=== PATIENT | female | born 1960 | race Caucasian/White ===

== ENCOUNTER → 2016-09-19 | Outpatient (CLI) | payer OTHER | LOC: SL 20:30 | PROVIDERS: ATTEND Family Medicine | DX: J45.50 Severe persistent asthma, uncomplicated (principal); I27.0 Primary pulmonary hypertension ==

== ENCOUNTER → 2016-09-21 | Outpatient (CLI) | payer OTHER | LOC: GMAM 17:04 | PROVIDERS: ATTEND Family Medicine | DX: R06.02 Shortness of breath (principal); J45.50 Severe persistent asthma, uncomplicated ==

== ENCOUNTER 2016-09-26 15:21 | Inpatient (IN) | payer OTHER ==
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
[2016-09-26] MEDS ORDERED: LEVALBUTEROL NEBS 1.25 MG/3 ML VIAL NEB PRN (15:45)
[2016-09-26] MEDS ORDERED: SODIUM CHLORIDE 0.9% (FLUSH) 10 ML SYG IV PRN (15:45)
[2016-09-26] MEDS ORDERED: ACETAMINOPHEN 325 MG TAB PO PRN (15:45)
[2016-09-26] MEDS ORDERED: LEVALBUTEROL NEBS 1.25 MG/3 ML VIAL NEB SCH (16:00)
[2016-09-26] MEDS ORDERED: IV SET AND CAP CHANGE INJ INJ SCH (16:00)
[2016-09-26] MEDS ORDERED: SODIUM CHL 0.9% 50ML MIN-BAG+ 50 ML IVPB ONE (16:22)
[2016-09-26] MEDS ORDERED: cefTRIAXone SODIUM 1 GM VIAL ONE (16:23)
[2016-09-26] MEDS: methylPREDNISolone SODIUM SUC 125 MG/2 ML VIAL IV SCH ×2 (16:28→22:27)
[2016-09-26] MEDS: AZITHROMYCIN 250 MG TAB PO SCH (16:30)
[2016-09-26] MEDS: cefTRIAXone SODIUM 1 GM in SODIUM CHL 0.9% 50ML MIN-BAG+ 50 ML IVPB SCH (16:42)
--- NOTE | 2016-09-26 16:52 | RAD ---
EXAM DESCRIPTION: Chest,2 Views CLINICAL HISTORY: Exacerbation Asthma COMPARISON: July 21, 2016 FINDINGS: Cardiac silhouette is within normal limits. Aorta is tortuous. There is no focal parenchymal or pleural disease. There is no acute osseous process visualized. IMPRESSION: No evidence of acute cardiopulmonary disease. Electronically signed by: Claude Lin MD 09/26/2016 2:51 PM PST
[2016-09-26] MEDS ORDERED: MAGNESIUM SULFATE PREMIX 2GM 2 GM in PREMIX BAG 1 BAG IVPB ONE (17:18)
[2016-09-26] MEDS ORDERED: MAGNESIUM SULFATE PREMIX 2GM 50 ML IVPB ONE (19:29)
[2016-09-26] MEDS ORDERED: PRAMIPEXOLE 0.25 MG TAB PO ONE (20:33)
[2016-09-26] MEDS: KCL 40MEQ/NS 1,000 ML IVS PRN (20:39)
[2016-09-26] MEDS ORDERED: SODIUM CHLORIDE 0.9% (FLUSH) 10 ML SYG IV SCH (21:00)
[2016-09-26] MEDS ORDERED: NON-FORMULARY MEDICATION 1 EA MIS (Pramipexole Dihydrochloride [Pramipexole Dihydrochlori] PO SCH (21:00)
[2016-09-26] MEDS: SPIRONOLACTONE 25 MG TAB PO SCH (21:00)
--- NOTE | 2016-09-26 21:24 | PCM.CORE ---
Physician DVT/VTE - Nurse DVT Assessment & Total Each Risk Factor Represents 2 Points: Malignancy (present/past) Each Risk Factor Represents 1 Point: Age 41-60 Each Risk Factor is 1 Point: Varicose Veins/Edema Legs, Obesity (BMI >25), Serious Lung disease (pnemonia <1month, COPD, emphysema,etc) DVT Assessment Score: 6 - 5 or more Very High Risk Treatments: Early Ambulation *, Sequential Compression Device Pharmacological: Enoxaparin 40mg SQ Daily
[2016-09-26] MEDS: ENOXAPARIN SODIUM 40 MG/0.4 ML SYG SUBCU SCH (22:29)
[2016-09-27] MEDS: LEVALBUTEROL NEBS 1.25 MG/3 ML VIAL NEB SCH ×4 (00:06→16:16)
[2016-09-27] MEDS: IPRATROPIUM BROMIDE NEBS 0.5 MG/2.5 ML VIAL NEB SCH ×4 (01:21→16:16)
[2016-09-27] MEDS: methylPREDNISolone SODIUM SUC 125 MG/2 ML VIAL IV SCH ×4 (03:46→21:42)
[2016-09-27] MEDS: [UNRECOGNIZED DRUG - OTHER] PO SCH ×3 (06:46→16:40)
[2016-09-27] MEDS: PANCRELIPASE PO SCH ×3 (06:46→16:40)
--- NOTE | 2016-09-27 07:41 | RAD ---
EXAM DESCRIPTION: XR CHEST 2 VIEWS CLINICAL HISTORY: Pneumonia COMPARISON: 09/26/2016 TECHNIQUE: Two-views of the chest. FINDINGS: Heart size is normal. Lungs are clear. No acute osseous injury. IMPRESSION: No acute chest process Electronically signed by: Sim Melgar MD 09/27/2016 07:39
[2016-09-27] MEDS: BREO ELLIPTA INH SCH (08:05)
[2016-09-27] MEDS ORDERED: TIOTROPIUM INHALER INH SCH (08:30)
[2016-09-27] MEDS: MONTELUKAST SODIUM 10 MG TAB PO SCH (09:50)
[2016-09-27] MEDS: SERTRALINE HCL 50 MG TAB PO SCH (09:50)
[2016-09-27] MEDS: SPIRONOLACTONE 25 MG TAB PO SCH ×2 (09:50→20:41)
[2016-09-27] MEDS: lamoTRIgine 100 MG TAB PO SCH (09:50)
[2016-09-27] MEDS: BIFIDOBACTERIUM INFANTIS 4 MG CAP PO SCH (09:50)
[2016-09-27] MEDS: KCL 40MEQ/NS 1,000 ML IVS PRN (12:28)
[2016-09-27] MEDS ORDERED: KCL 40MEQ/NS 1,000 ML IVS PRN ×2 (12:29→12:49)
--- NOTE | 2016-09-27 13:25 | PN ---
SUPERVISING PHYSICIAN: Micheal Espino MD DATE: 09/27/16 SUBJECTIVE: The patient is sitting up in her chair in her hospital room. She is in mild respiratory distress. She is slightly tachypneic and she can say one to two words at a time without getting somewhat short of breath. She complains of shortness of breath with exertion although it is better than it was yesterday. She also states she does get some slight chest pains when she uses the Atrovent. Other than that, she denies coughing or wheezing. She denies abdominal pain, dizziness or headache. OBJECTIVE: VITAL SIGNS: She is afebrile. Heart rate 104. Blood pressure 134/ 77. Respiratory rate 24. O2 saturation 93% on 2 liters nasal cannula. RESPIRATORY: Diminished breath sounds throughout with occasional scattered rhonchi. There is no expiratory wheezing at this time. She is slightly tachypneic. CARDIAC: Regular rate and rhythm. She does occasionally become tachycardic. ABDOMEN: Soft, nontender, nondistended. Bowel sounds are positive. EXTREMITIES: No cyanosis or clubbing. She does have a trace of pedal edema. Her pedal pulses are palpable bilaterally, +2. NEUROLOGIC: Awake , alert and oriented times three. LABORATORY: White count 7.4, hemoglobin 12.9, hematocrit 37.4. She does have a slight shift with neutrophils 90.9%. Sodium has gone up from 123 to 126. Potassium 3.9, chloride 92, glucose 210, serum osmolality 259.7, calcium 9.1. Preliminary blood cultures are negative. Chest x-ray shows no cardiopulmonary abnormalities. All other labs and films have been reviewed via the EMR. ASSESSMENT: 1. Acute exacerbation of asthma having failed to respond to outpatient treatment with the patient having a history of recent exacerbation in July and pneumonia with sputum growing Moraxella catarrhalis. 2. Hyponatremia. 3. Exacerbation of chronic obstructive pulmonary disease with a history of chronic bronchitis and asthma. 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 4. Electrolyte imbalance including hypochloremia that is improving. 5. History of supraventricular tachycardia having ablation therapy. 6. History of venous insufficiency with chronic lower extremity edema. 7. History of cardiovascular valvular dysfunction with audible murmurs and chronic lower extremity edema and the last echocardiogram in March of 2016 with an ejection fraction of 64%. 8. History of pulmonary hypertension. 9. Iron deficiency anemia. 10. Hypertension. 11. Significant history of obstructive pulmonary disease requiring CPAP at night. 12. Gastroesophageal reflux disease. PLAN: We will restrict the patient's fluids. I have discontinued her Atrovent and increased her Xopenex to every 4 hours and p.r.n. I have started slowly tapering off her Solu-Medrol. We will get an ambulatory study tomorrow to see what her exercise tolerance is. Repeat her labs in the morning. We will continue to monitor the patient closely and followup as needed. Dr. Espino is the collaborating physician and available for consultation. #[id number] [facility]
[2016-09-27] MEDS ORDERED: cefTRIAXone SODIUM 1 GM VIAL ONE (16:31)
[2016-09-27] MEDS ORDERED: SODIUM CHL 0.9% 50ML MIN-BAG+ 50 ML IVPB ONE (16:31)
[2016-09-27] MEDS: AZITHROMYCIN 250 MG TAB PO SCH (16:40)
[2016-09-27] MEDS: cefTRIAXone SODIUM 1 GM in SODIUM CHL 0.9% 50ML MIN-BAG+ 50 ML IVPB SCH (16:40)
[2016-09-27] MEDS ORDERED: LURASIDONE HCL 60 MG PO SCH (17:00)
[2016-09-27] MEDS ORDERED: PRAMIPEXOLE 0.25 MG TAB PO ONE (19:43)
[2016-09-27] MEDS: SPIRIVA RESPIMAT INH SCH (20:00)
[2016-09-27] MEDS: PRAMIPEXOLE 0.25 MG TAB PO SCH (20:42)
[2016-09-27] MEDS: ENOXAPARIN SODIUM 40 MG/0.4 ML SYG SUBCU SCH (21:14)
[2016-09-27] MEDS: guaiFENesin ER TAB 600 MG TAB PO SCH (21:14)
[2016-09-28] MEDS: LEVALBUTEROL NEBS 1.25 MG/3 ML VIAL NEB PRN ×3 (01:10→13:17)
[2016-09-28] MEDS: methylPREDNISolone SODIUM SUC 125 MG/2 ML VIAL IV SCH ×4 (04:19→22:05)
[2016-09-28] MEDS: PANCRELIPASE PO SCH ×4 (06:48→22:01)
[2016-09-28] MEDS: [UNRECOGNIZED DRUG - OTHER] PO SCH ×4 (06:48→22:01)
[2016-09-28] MEDS: SPIRIVA RESPIMAT INH SCH ×3 (08:17→19:50)
[2016-09-28] MEDS: BREO ELLIPTA INH SCH (08:17)
[2016-09-28] MEDS: SERTRALINE HCL 50 MG TAB PO SCH (08:37)
[2016-09-28] MEDS: BIFIDOBACTERIUM INFANTIS 4 MG CAP PO SCH (08:38)
[2016-09-28] MEDS: MONTELUKAST SODIUM 10 MG TAB PO SCH (08:38)
[2016-09-28] MEDS: SPIRONOLACTONE 25 MG TAB PO SCH ×2 (08:38→16:30)
[2016-09-28] MEDS: guaiFENesin ER TAB 600 MG TAB PO SCH ×2 (08:38→21:22)
[2016-09-28] MEDS: lamoTRIgine 100 MG TAB PO SCH (08:38)
[2016-09-28] MEDS ORDERED: LEVALBUTEROL NEBS 1.25 MG/3 ML VIAL NEB PRN (09:08)
[2016-09-28] MEDS ORDERED: cefTRIAXone SODIUM 1 GM VIAL ONE ×2 (11:02→22:14)
[2016-09-28] MEDS ORDERED: SODIUM CHL 0.9% 50ML MIN-BAG+ 50 ML IVPB ONE ×2 (11:02→22:13)
[2016-09-28] MEDS: cefTRIAXone SODIUM 1 GM in SODIUM CHL 0.9% 50ML MIN-BAG+ 50 ML IVPB SCH ×2 (11:05→22:38)
--- NOTE | 2016-09-28 14:52 | PN ---
SUPERVISING PHYSICIAN: Micheal Espino MD DATE: 09/28/16 SUBJECTIVE: The patient is sitting up in bed. She is working on her computer. She is slightly tachypneic. She complains of shortness of breath with any exertion, but she does state she feels somewhat better than yesterday. She did have one bout of chest pain earlier in the morning, but it was during her Xopenex treatment. There are no further complaints of chest pain, no complaints of abdominal pain, nausea or vomiting. She also complains of some occasional wheezing. OBJECTIVE: VITAL SIGNS: Temperature 98.4. Heart rate 96. Blood pressure 152/ 82. Respiratory rate 24, occasionally goes down to 20 and then also goes up to 26 to 28. O2 saturation 94% on room air. GENERAL: This is a 56-year-old, obese female who is in no acute distress. LUNGS: Bilateral expiratory wheezing in the apices, scattered diffusely rhonchi throughout all lung field. CARDIAC: Regular rate and rhythm. ABDOMEN: Soft, rounded, nontender, nondistended. Bowel sounds are positive. EXTREMITIES: No cyanosis, clubbing or edema. NEUROLOGIC: Awake, alert and oriented times three. LABORATORY: WBC 20.3, up from 7.4 yesterday. It is to be noted that her steroid dosing was decreased yesterday. Neutrophils 93. Sodium 133, up from 126 yesterday. Chloride 100, carbon dioxide 27, BUN 16, creatinine 0.76, glucose 213, serum osmolality 273.9. Cardiac enzymes this morning were negative. Preliminary blood cultures are negative after 24 hours. Preliminary sputum culture shows gram negative rods. All other labs and films have been reviewed via the EMR. ASSESSMENT: 1. Acute exacerbation of asthma having failed to respond to outpatient treatment with the patient having a history of recent exacerbation in July. Her sputum in July grew Moraxella catarrhalis. Preliminary cultures for this hospital visit show a gram negative sputum, still awaiting sensitivities. 2. Hyponatremia, improved with fluid restrictions. 3. Exacerbation of chronic obstructive pulmonary disease with a history of chronic bronchitis and asthma. 4. Electrolyte imbalance including hypochloremia that is improving. 5. History of supraventricular tachycardia having ablation therapy in the past. 6. History of venous insufficiency with chronic lower extremity edema. 7. History of cardiovascular valvular dysfunction. Her last echocardiogram in March of 2016 had an ejection fraction of 64%. 8. History of pulmonary hypertension. 9. Iron deficiency anemia. 10. Hypertension. 11. Gastroesophageal reflux disease. PLAN: The patient is slowly improving although she still has expiratory wheezings and dyspnea on exertion. Her white count did jump up significantly overnight, so I will recheck her CBC in the morning. I will continue present steroid dosing and we may be able to reduce her dosage tomorrow. She had asked to discontinue the p.r.n. Xopenex treatments yesterday and I have re-started the scheduled treatments q.4h. She also has Xopenex as needed. We will continue to restrict the patient's fluid although she is poorly compliant. We will wait for sensitivities from her sputum. At this point, she has coverage for the gram negative as she is on Rocephin. We will also continue her azithromycin. Continue to encourage good pulmonary toilet. She will hopefully be ready for discharge in the next day or two. Dr. Espino is the collaborating physician and available for consultation. #[id number] [facility]
[2016-09-28] MEDS: AZITHROMYCIN 250 MG TAB PO SCH (15:45)
[2016-09-28] MEDS: LEVALBUTEROL NEBS 1.25 MG/3 ML VIAL NEB SCH ×3 (16:36→23:55)
[2016-09-28] MEDS ORDERED: LURASIDONE HCL 60 MG PO SCH (21:00)
[2016-09-28] MEDS: PRAMIPEXOLE 0.25 MG TAB PO SCH (21:22)
[2016-09-28] MEDS ORDERED: [UNRECOGNIZED DRUG - OTHER] PO ONE (21:47)
[2016-09-28] MEDS ORDERED: PANCRELIPASE PO ONE (21:47)
[2016-09-28] MEDS: ENOXAPARIN SODIUM 40 MG/0.4 ML SYG SUBCU SCH (22:01)
[2016-09-29] MEDS: methylPREDNISolone SODIUM SUC 125 MG/2 ML VIAL IV SCH (03:45)
[2016-09-29] MEDS: LEVALBUTEROL NEBS 1.25 MG/3 ML VIAL NEB SCH ×3 (04:00→13:19)
[2016-09-29] MEDS ORDERED: SODIUM CHL 0.9% 50ML MIN-BAG+ 50 ML IVPB ONE (08:40)
[2016-09-29] MEDS ORDERED: cefTRIAXone SODIUM 1 GM VIAL ONE (08:40)
[2016-09-29] MEDS: BIFIDOBACTERIUM INFANTIS 4 MG CAP PO SCH (08:52)
[2016-09-29] MEDS: SPIRONOLACTONE 25 MG TAB PO SCH (08:52)
[2016-09-29] MEDS: guaiFENesin ER TAB 600 MG TAB PO SCH (08:53)
[2016-09-29] MEDS: lamoTRIgine 100 MG TAB PO SCH (08:53)
[2016-09-29] MEDS: MONTELUKAST SODIUM 10 MG TAB PO SCH (08:55)
[2016-09-29] MEDS: SERTRALINE HCL 50 MG TAB PO SCH (08:55)
[2016-09-29] MEDS: SPIRIVA RESPIMAT INH SCH (08:55)
[2016-09-29] MEDS: BREO ELLIPTA INH SCH (08:55)
[2016-09-29 10:47] VITALS: TEMP 98
[2016-09-29] MEDS: cefTRIAXone SODIUM 1 GM in SODIUM CHL 0.9% 50ML MIN-BAG+ 50 ML IVPB SCH (12:08)
[2016-09-29] MEDS ORDERED: PANCRELIPASE PO PRN (12:12)
[2016-09-29] MEDS ORDERED: [UNRECOGNIZED DRUG - OTHER] PO PRN (12:12)
[2016-09-29] MEDS ORDERED: FLUCONAZOLE 150 MG TAB PO ONE (13:13)
[2016-09-29 15:16] VITALS: BP 141/74; O2SAT 97
--- NOTE | 2016-09-30 12:07 | DS ---
SUPERVISING PHYSICIAN: Sim Bah MD DISCHARGE DIAGNOSES: 1. Acute exacerbation of asthma having failed to respond to outpatient treatment plan and having a history of recent exacerbation as early as July 2016. She has a history of Moraxella catarrhalis. Cultures on sputum this admission showed Klebsiella pneumonia which was sensitive to all except ampicillin with the patient having just completed a 5 to 7 day course of Cefdinir prior to admission and now completion of full course of azithromycin IV. 2. Hyponatremia, persistent and felt to be secondary to medication regimen as well as excessive intake, showing improvement after starting on fluid restriction. 3. Exacerbation of chronic obstructive pulmonary disease with history of chronic bronchitis and asthma with current exacerbation as noted in #1 showing improvement after aggressive pulmonary hygiene and high-dose corticosteroids. 4. Electrolyte imbalance that included hypochloremia and hyponatremia showing improvement prior to discharge. 5. History of supraventricular tachycardia having ablation therapy in the past. 7. History of venous insufficiency with chronic lower extremity edema. 8. History of cardiovascular valvular dysfunction with last echocardiogram March 2016 with an ejection fraction of 64%. 9. History of pulmonary hypertension. 10. Iron-deficiency anemia. 11. Hypertension. 12. Gastroesophageal reflux disease. HISTORY OF PRESENT ILLNESS: Jese Smith is a 56 year-old female patient of Dr. Bah'dontrell that was seen in the clinic the previous week prior to admission for a mild exacerbation of her asthma. She was initially given steroids and started on a course of Cefdinir. She presented back to the clinic today on date of admission, 09/26/16, noting that her symptoms had progressively worsened and that she was having a significant cough that had now become productive with dyspnea with any mild exertion as well as wheezing. She was directly admitted to the hospital having failed to respond to outpatient treatment therapy for exacerbation of her asthma. She was admitted in stable condition. LABORATORY: CBC on admission initially showed a white count of 6.9. She did show a maximum increase in her white count to 20.3, however, she was on significant dosages of Solu-Medrol prior to discharge. This had started to show a decrease and was at 13.8. Hemoglobin and hematocrit were stable at 12.4 and 36.3. Initially, there was no left showed on a differential, however, after treatment and at time of discharge she did show a left shift which was shown to be stable and Improving initially with initial slide review showing 5% bands and at tie of discharge no bands were reported. Coagulation studies showed a normal PT, PTT. Her chemistries initially on admission did show a low sodium of 123 with a potassium of 3.6. Her sodium did increase to the low end of normal to 132, potassium remained stable and at time of discharge it was 4.1 Her BUN was 14, creatinine 0.71 and was stable through admission. Serum osmolality initially on admission was low at 247. After fluid restrictions at time of discharge it was normalized but was still in the low end of normal at 272. Her liver functions all showed to be within normal limits. Troponin was normal at 0.03 with a BNP of 39. Urine on admission did show 250 glucose, otherwise within normal limits. MICROBIOLOGY: Sputum culture showed a final culture of Klebsiella pneumonia sensitive to all antibiotics tested except for ampicillin. Please refer to that file report for full details. She had influenza A and B antigen test that were both negative for A and B. She had blood cultures that remained negative after 3 days. RADIOLOGY: Initial chest x-ray on admission per radiology interpretation showed no acute cardiopulmonary disease. Repeat chest x-ray on 09/27, two days prior to discharge and after starting treatment, showed again no acute chest processes. No additional radiographic studies were pursued. HOSPITAL COURSE: Ms. Sawant was admitted as above in her history of present illness for a noted exacerbation of her asthma, having failed to respond to outpatient treatment plan. Upon admission, she was started on antibiotics that included azithromycin and Rocephin. She was also started on high dose of corticosteroids at 125 mg every 6 hours for 2 days. This was slowly tapered off until discharge at which time she was sent home with a continued tapered dose of prednisone. She did show improvement in her respiratory effort and clinically improved. Her vital signs initially on admission did show an 02 saturation of 98%, however, she was significantly short of breath with obvious dyspnea with 24 to 30 respirations with significantly decreased breath sounds. Blood pressure remained stable, at time of discharge it was 132/73. She was 141/74, she remained afebrile with a T-max temperature of 98.6. Heart rate remained fairly well controlled with a heart rate max of 115. She had no chest pain, she had good improvement in her respiratory effort and was continued to maintain good 02 saturation with increasing lung function after starting on aggressive pulmonary hygiene. She was felt enough to discharge home to continue with outpatient treatment plan. PLAN: The patient is discharged on 09/29/16 to have close clinical followup with Dr. Bah on 10/04/16 at 10:15. She was to resume all her previous medications as scheduled and take new prescriptions as directed. No new antibiotics were started as it was felt she has no significant signs of pneumonia and had been on adequate antibiotic coverage prior and through admission. She was encouraged to increase her activity and utilize her IS at home. She was told she could return to work after October 04 when she was seen and followed by Dr. Bah. She was encouraged to watch her diet and watch her fluid intake. She was given one Diflucan tablet 150 mg prior to discharge. At discharge she was given new prescriptions, one that included Diflucan 150 mg tablet, one table to take in 3 days if she had no improvement in her symptoms from 09/29/16, with no refills. She was on a prednisone tapering dose, 10 mg tablet. She was to take 40 mg for 5 days, 30 mg for 5 days, 20 mg for 5 days and then 10 mg for 5 days. She was discharged in stable condition on 09/29/16. #[id number] [facility]
== END 2016-09-29 13:30 | disposition home or self-care (01) | DRG 202 ==
LOC: MS 15:21
PROVIDERS: ADMIT Nurse Practitioner Family; ATTEND Nurse Practitioner Family
DX: J45.901 Unspecified asthma with (acute) exacerbation (principal); E87.1 Hypo-osmolality and hyponatremia; J44.1 Chronic obstructive pulmonary disease with (acute) exacerbation; Z68.42 Body mass index [BMI] 45.0-49.9, adult; B96.1 Klebsiella pneumoniae [K. pneumoniae] as the cause of diseases classified elsewhere; I27.2 Other secondary pulmonary hypertension; D50.9 Iron deficiency anemia, unspecified; I10 Essential (primary) hypertension; K21.9 Gastro-esophageal reflux disease without esophagitis; E87.8 Other disorders of electrolyte and fluid balance, not elsewhere classified; E53.8 Deficiency of other specified B group vitamins; I08.3 Combined rheumatic disorders of mitral, aortic and tricuspid valves; G47.33 Obstructive sleep apnea (adult) (pediatric); K58.9 Irritable bowel syndrome, unspecified; G25.81 Restless legs syndrome; F31.9 Bipolar disorder, unspecified; D70.9 Neutropenia, unspecified; K86.89 Other specified diseases of pancreas; M47.9 Spondylosis, unspecified; E66.9 Obesity, unspecified; Z16.11 Resistance to penicillins; Z98.84 Bariatric surgery status

== ENCOUNTER → 2016-10-04 | Outpatient (CLI) | payer OTHER | LOC: GMAM 14:44 | PROVIDERS: ATTEND Family Medicine | DX: I47.1 Supraventricular tachycardia (principal) ==

== ENCOUNTER → 2016-11-09 | Outpatient (CLI) | payer OTHER ==
--- NOTE | 2016-11-10 09:01 | RAD ---
EXAM DESCRIPTION: Lumbar Spine 3 Views CLINICAL HISTORY: 56 yearsFemale, LUMBAR NEURITIS COMPARISON: None. IMPRESSION: Mild dextroscoliosis of lumbar spine. There is degenerative change at L5-S1 with significant intervertebral disc height loss and subchondral sclerosis. Disc vacuum phenomenon noted. Possible L5 pars defects. This can be confirmed on a CT. Electronically signed by: Low Bragg MD 11/10/2016 9:00 AM [employer]
== END | disposition home or self-care (01) ==
LOC: RAD 18:06
PROVIDERS: ATTEND Chiropractor
DX: M54.16 Radiculopathy, lumbar region (principal)

== ENCOUNTER → 2017-03-20 | Outpatient (CLI) | payer OTHER | LOC: GMAM 11:55 | PROVIDERS: ATTEND Family Medicine | DX: R60.0 Localized edema (principal); E87.6 Hypokalemia; E87.0 Hyperosmolality and hypernatremia ==

== ENCOUNTER → 2017-07-05 | Outpatient (CLI) | payer OTHER ==
--- NOTE | 2017-07-05 17:53 | US ---
PROCEDURE: Venous,Lower Extremity RT CLINICAL HISTORY and INDICATION: Right lower extremity pain COMPARISON: None. TECHNIQUE: Contreras scale imaging with duplex interrogation of the right lower extremity venous system was performed and multiple static images were obtained. FINDINGS: Utilizing compression and augmentation, there is no deep venous thrombus in the common femoral, superficial femoral or popliteal veins. The posterior tibial and deep peroneal veins are patent and compressible. . The greater saphenous vein at the saphenofemoral junction is patent and compressible. There is no visualization of any subcutaneous fluid collections. There is no visualization of any fluid collections in the right popliteal fossa. There is no evidence of reactive or pathological lymphadenopathy in the evaluated right lower extremity. IMPRESSION: No deep venous thrombosis of the right lower extremity. Location of Interpretation: [id number] Electronically signed by: Huey Wheeler MD 07/05/2017 5:52 PM CDT Workstation: [id number]
== END | disposition home or self-care (01) ==
LOC: US 16:35
PROVIDERS: ATTEND Nurse Practitioner Family
DX: L03.115 Cellulitis of right lower limb (principal); R60.9 Edema, unspecified

== ENCOUNTER 2017-07-07 13:08 | Inpatient (IN) | payer OTHER ==
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
[2017-07-07] MEDS ORDERED: VANCOMYCIN PER PHARMACY IVPB SCH (14:30)
[2017-07-07] MEDS ORDERED: IV SET AND CAP CHANGE INJ INJ SCH (14:30)
[2017-07-07] MEDS ORDERED: VANCOMYCIN HCL INJ 1,000 MG VIAL IVPB ONE (15:29)
[2017-07-07] MEDS ORDERED: SODIUM CHLORIDE 0.9% 250ML 250 ML ONE (15:29)
[2017-07-07] MEDS ORDERED: VANCOMYCIN HCL INJ 500 MG VIAL ONE (15:29)
[2017-07-07] MEDS: SODIUM CHLORIDE 0.9% (FLUSH) 10 ML SYG IV PRN ×2 (15:46→17:48)
[2017-07-07] MEDS: VANCOMYCIN HCL INJ 1,000 MG, VANCOMYCIN HCL INJ 250 MG in SODIUM CHLORIDE 0.9% 250ML 25... IVPB SCH (15:47)
[2017-07-07] MEDS ORDERED: POTASSIUM CHLORIDE 20 MEQ TAB PO ONE (16:10)
[2017-07-07] MEDS ORDERED: traMADol HCL 50 MG TAB PO ONE (16:18)
[2017-07-07] MEDS ORDERED: KCL 20MEQ/D5NS 1,000 ML IVS ONE (16:20)
[2017-07-07] MEDS ORDERED: TRIAMCINOLONE 0.1% OINT 15 GM TUBE TOP PRN (16:47)
[2017-07-07] MEDS ORDERED: [UNRECOGNIZED DRUG - OTHER] PO PRN (16:47)
[2017-07-07] MEDS ORDERED: PANCRELIPASE PO PRN (16:47)
[2017-07-07] MEDS ORDERED: LEVALBUTEROL NEBS 1.25 MG/3 ML VIAL NEB PRN ×2 (16:51→16:52)
[2017-07-07] MEDS ORDERED: ENOXAPARIN SODIUM 40 MG/0.4 ML SYG SUBCU SCH (17:00)
[2017-07-07] MEDS: PANTOPRAZOLE SODIUM IV 40 MG VIAL IV SCH (17:48)
[2017-07-07] MEDS ORDERED: TORSEMIDE TAB 20 MG ONE (19:45)
[2017-07-07] MEDS ORDERED: levoFLOXacin 500MG IV 100 ML IVPB ONE (19:46)
[2017-07-07] MEDS ORDERED: MAGNESIUM OXIDE 400 MG TAB ONE (19:48)
[2017-07-07] MEDS ORDERED: PRAMIPEXOLE 0.25 MG TAB ONE (19:56)
[2017-07-07] MEDS: TORSEMIDE TAB 20 MG PO SCH ×2 (20:04→20:06)
[2017-07-07] MEDS: levoFLOXacin 500MG IV 500 MG in PREMIX BAG 1 BAG IVPB SCH (20:04)
[2017-07-07] MEDS: MONTELUKAST 10 MG TAB PO SCH (20:04)
[2017-07-07] MEDS: NON-FORMULARY MEDICATION 1 EA MIS (Dexlansoprazole [Dexilant] 60 MG) PO SCH (20:04)
[2017-07-07] MEDS: SODIUM CHLORIDE 0.9% (FLUSH) 10 ML SYG IV SCH (20:47)
[2017-07-07] MEDS ORDERED: NON-FORMULARY MEDICATION 1 EA MIS (Magnesium [Magnesium] 400 MG) PO SCH (21:00)
[2017-07-07] MEDS ORDERED: NON-FORMULARY MEDICATION 1 EA MIS (Pramipexole Dihydrochloride [Pramipexole Dihydrochlori] PO SCH (21:00)
[2017-07-08] MEDS ORDERED: VANCOMYCIN HCL INJ 500 MG VIAL ONE ×2 (02:35→15:39)
[2017-07-08] MEDS ORDERED: VANCOMYCIN HCL INJ 1,000 MG VIAL IVPB ONE ×2 (02:35→15:40)
[2017-07-08] MEDS ORDERED: SODIUM CHLORIDE 0.9% 250ML 250 ML ONE ×2 (02:35→15:40)
[2017-07-08] MEDS: VANCOMYCIN HCL INJ 1,000 MG, VANCOMYCIN HCL INJ 250 MG in SODIUM CHLORIDE 0.9% 250ML 25... IVPB SCH ×2 (03:15→15:57)
[2017-07-08] MEDS ORDERED: [UNRECOGNIZED DRUG - OTHER] PO SCH (07:00)
[2017-07-08] MEDS ORDERED: PANCRELIPASE PO SCH (07:00)
[2017-07-08] MEDS ORDERED: NON-FORMULARY MEDICATION 1 EA MIS (Tiotropium Bromide Monohydrate [Spiriva Respimat] 2 INH IN SCH (08:00)
[2017-07-08] MEDS ORDERED: MECLIZINE HCL 12.5 MG TAB PO PRN (08:00)
[2017-07-08] MEDS ORDERED: NON-FORMULARY MEDICATION 1 EA MIS (Fluticasone Furoate-Vilanterol [Breo Ellipta 100-25 Mcg IN SCH (08:00)
[2017-07-08] MEDS: TORSEMIDE TAB 20 MG PO SCH ×3 (08:23→17:25)
[2017-07-08] MEDS ORDERED: POTASSIUM CHLORIDE 10 MEQ TAB PO ONE ×2 (08:47→08:58)
[2017-07-08] MEDS: lamoTRIgine 100 MG TAB PO SCH (08:57)
[2017-07-08] MEDS: SERTRALINE HCL 50 MG TAB PO SCH (08:57)
[2017-07-08] MEDS: POTASSIUM CHLORIDE 10 MEQ TAB PO SCH ×2 (08:58→17:25)
[2017-07-08] MEDS: ENOXAPARIN SODIUM 40 MG/0.4 ML SYG SUBCU SCH (08:59)
[2017-07-08] MEDS: SODIUM CHLORIDE 0.9% (FLUSH) 10 ML SYG IV SCH ×2 (09:00→20:17)
[2017-07-08] MEDS: traMADol HCL 50 MG TAB PO PRN (09:04)
[2017-07-08] MEDS: [UNRECOGNIZED DRUG - OTHER] PO SCH ×3 (10:39→17:06)
[2017-07-08] MEDS: PANCRELIPASE PO SCH ×3 (10:39→17:06)
--- NOTE | 2017-07-08 11:07 | RAD ---
Procedure: XR ANKLE 3 OR MORE VIEWS Exam Date: 07/08/2017 10:22 AM ASSOCIATE DIRECTOR OF NURSING Ordering Provider: Juan Villela NP Clinical Indication: cellulitis, severe pain over medial mallelous Comparison: None Findings: There is diffuse soft tissue swelling about the ankle and the lower leg. No acute fracture or focal osseous destruction is present. Degenerative spurring is seen at the tibiotalar joint space. Millimetric subchondral cystic changes seen in the medial aspect of the talar dome subchondral bone plate. IMPRESSION: Diffuse soft tissue swelling about the distal leg and ankle. No acute osseous abnormality. Probable chronic osteochondral lesion at the medial talar dome. Electronically signed by: Darin Crews MD 07/08/2017 11:06 AM ASSOCIATE DIRECTOR OF NURSING
[2017-07-08] MEDS ORDERED: KETOROLAC TROMETHAMINE INJ 30 MG/ML VIAL IV ONE (13:07)
--- NOTE | 2017-07-08 13:49 | PCM.CORE ---
Physician DVT/VTE - Nurse DVT Assessment & Total Each Risk Factor Represents 1 Point: Age 41-60 Each Risk Factor is 1 Point: Varicose Veins/Edema Legs, Hx of Inflammatory Bowel Disease, Obesity (BMI >25), Serious Lung disease (pnemonia <1month, COPD, emphysema,etc) DVT Assessment Score: 5 - 5 or more Very High Risk Treatments: Early Ambulation *, Sequential Compression Device - left leg Pharmacological: Enoxaparin 40mg SQ Daily
--- NOTE | 2017-07-08 14:50 | PN ---
DATE: 07/08/17 SUPERVISING PHYSICIAN: Micheal Espino M.D. SUBJECTIVE: The patient has been in bed with the leg elevated. She notes that the swelling has decreased from admission. She still has a good deal of tenderness overlying the ankle, especially the medial aspect. She remains afebrile. OBJECTIVE: VITAL SIGNS: Temperature 98.3, pulse 72, blood pressure 106/72, respirations 18, satting 93% on room air. I's and O's show a positive balance of 1250 with 3300 in, 2050 out. Weight 118.7 kg. CHEST: Lungs are clear to auscultation. HEART: Regular rate and rhythm. ABDOMEN: Soft, non-tender. Positive bowel sounds. EXTREMITIES: Right lower extremity shows some edema with erythema more localized today to the medial aspect of the ankle and foot with some ecchymotic areas distal to the ankle. She has some point tenderness overlying the medial malleolus and pain with flexion of the ankle. Pulses are 2 + bilaterally. The area of erythema has decreased and receded below the initial margins that were marked on admission. NEUROLOGIC: She is alert and oriented times three. LABORATORY: CBC shows a white count of 5.5, hemoglobin 11.0, hematocrit 32.0, platelet count is within normal limits. Magnesium 1.9, potassium 3.3. All other electrolytes were within normal limits. BUN 8, creatinine 0.73. RADIOLOGY: Three view plain film of the right ankle per radiology interpretation notes diffuse soft tissue swelling about the distal leg and ankle. No acute osseous abnormalities were noted. There is probable chronic osteochondral lesion at the medial talar dome. There is no mention of acute fractures or focal osseous destructions present. There was a degenerative spurring seen at the tibial talar joint space with a millimetric subcondylar cystic changes within the medial aspect of the talar dome, subcondylar bone plate per radiology interpretation. ASSESSMENT: 1. 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 2. Electrolyte imbalance with mild hypokalemia showing improvement with IV replacement. 3. Mild dehydration, improved with IV fluids. 4. History of asthma. 5. History of supraventricular tachycardia having a previous ablation therapy. 6. History of venous insufficiency with chronic lower edema. 7. History of pulmonary hypertension. 8. Iron deficiency anemia. 9. Hypertension. 10. History of chronic obstructive pulmonary disease with obstructive sleep apnea requiring CPAP at night. 11. Gastroesophageal reflux disease. PLAN: The patient will continue with bedrest keeping the leg elevated and parenteral antibiotics to include vancomycin and Levaquin as she is showing good improvement. Based off x-ray findings today and in consideration for a more inflammatory response versus infectious process due to the questionable chronic osteochondral lesion at the medial talar dome, will try some antiinflammatories to include Toradol today. The patient does not recall any traumatic events or injuries to the ankle within the last week. Given the findings on x-ray, I will discuss those with Dr. Morales in anticipation of close clinical followup in the outpatient setting. Will anticipate hopefully discharging tomorrow with continued antibiotic therapy. Until then, will continue to monitor and treat appropriately. #[id number] [facility]
[2017-07-08] MEDS: PANTOPRAZOLE SODIUM IV 40 MG VIAL IV SCH (17:30)
[2017-07-08] MEDS: KETOROLAC TROMETHAMINE INJ 30 MG/ML VIAL IV SCH (18:10)
[2017-07-08] MEDS ORDERED: levoFLOXacin 500MG IV 100 ML IVPB ONE (20:02)
[2017-07-08] MEDS: levoFLOXacin 500MG IV 500 MG in PREMIX BAG 1 BAG IVPB SCH (20:18)
[2017-07-08] MEDS: MONTELUKAST 10 MG TAB PO SCH (20:43)
[2017-07-08] MEDS: MAGNESIUM OXIDE 400 MG TAB PO SCH (20:43)
[2017-07-08] MEDS: NON-FORMULARY MEDICATION 1 EA MIS (Dexlansoprazole [Dexilant] 60 MG) PO SCH (20:43)
[2017-07-08] MEDS: PRAMIPEXOLE 0.25 MG TAB PO SCH (20:43)
[2017-07-08] MEDS: LURASIDONE HCL 60 MG PO SCH (20:59)
[2017-07-08] MEDS: diphenhydrAMINE HCL 25 MG CAP PO PRN (23:12)
[2017-07-09] MEDS: KETOROLAC TROMETHAMINE INJ 30 MG/ML VIAL IV SCH ×2 (00:12→06:36)
[2017-07-09] MEDS: SODIUM CHLORIDE 0.9% (FLUSH) 10 ML SYG IV PRN ×3 (00:13→06:36)
[2017-07-09] MEDS ORDERED: SODIUM CHLORIDE 0.9% 250ML 250 ML ONE ×3 (02:36→20:52)
[2017-07-09] MEDS ORDERED: VANCOMYCIN HCL INJ 500 MG VIAL ONE (02:36)
[2017-07-09] MEDS ORDERED: VANCOMYCIN HCL INJ 1,000 MG VIAL IVPB ONE ×2 (02:37→19:18)
[2017-07-09] MEDS: VANCOMYCIN HCL INJ 1,000 MG, VANCOMYCIN HCL INJ 250 MG in SODIUM CHLORIDE 0.9% 250ML 25... IVPB SCH ×2 (03:40→15:26)
[2017-07-09] MEDS: traMADol HCL 50 MG TAB PO PRN ×2 (03:40→18:18)
[2017-07-09] MEDS: POTASSIUM CHLORIDE 10 MEQ TAB PO SCH ×2 (08:26→17:10)
[2017-07-09] MEDS: SERTRALINE HCL 50 MG TAB PO SCH (08:26)
[2017-07-09] MEDS: TORSEMIDE TAB 20 MG PO SCH ×2 (08:26→17:10)
[2017-07-09] MEDS: lamoTRIgine 100 MG TAB PO SCH (08:26)
[2017-07-09] MEDS: PANCRELIPASE PO SCH ×3 (08:27→17:10)
[2017-07-09] MEDS: SODIUM CHLORIDE 0.9% (FLUSH) 10 ML SYG IV SCH ×2 (08:27→21:30)
[2017-07-09] MEDS: ENOXAPARIN SODIUM 40 MG/0.4 ML SYG SUBCU SCH (08:27)
[2017-07-09] MEDS: [UNRECOGNIZED DRUG - OTHER] PO SCH ×3 (08:27→17:10)
[2017-07-09] MEDS: NON-FORMULARY MEDICATION 1 EA MIS (Fluticasone Furoate-Vilanterol [Breo Ellipta 100-25 Mcg IN SCH (09:15)
[2017-07-09] MEDS: NON-FORMULARY MEDICATION 1 EA MIS (Tiotropium Bromide Monohydrate [Spiriva Respimat] 2 INH IN SCH (09:20)
[2017-07-09] MEDS ORDERED: PANTOPRAZOLE SODIUM TAB 40 MG PO ONE (10:06)
[2017-07-09] MEDS: MELOXICAM 7.5 MG TAB PO SCH (10:11)
[2017-07-09] MEDS: PANTOPRAZOLE SODIUM TAB 40 MG PO SCH (11:42)
--- NOTE | 2017-07-09 17:55 | PN ---
DATE: 07/09/17 SUPERVISING PHYSICIAN: Sim Bah M.D. SUBJECTIVE: The patient has been afebrile. Leg shows some improvement. Still having quite a bit of pain on the ankle especially with any ambulatory effort. OBJECTIVE: VITAL SIGNS: Temperature 98.5, pulse 73, blood pressure 120/69, respirations 18, satting 98% on room air. I's and O's show a positive balance of 112 with 3762 in, 3650 out. Weight is 118.7 kg. CHEST: Lungs are clear to auscultation. HEART: Regular rate and rhythm. ABDOMEN: Soft, non-tender. Positive bowel sounds. EXTREMITIES: Right lower extremity shows decrease in edema. There is still some mild erythema overlying the medial aspect of the right ankle with some ecchymotic areas distal to that. Pulses are strong bilaterally. NEUROLOGIC: She is alert and oriented times three. LABORATORY: Chemistries today show potassium 3.4 which is improved from admission of 3.1, BUN 16, creatinine 0.93, calcium 8.9. Vancomycin trough was 19.3. MICROBIOLOGY: Blood cultures remain negative after 48 hours. ASSESSMENT: 1. 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 2. Electrolyte imbalance with persistent mild hypokalemia showing improvement with IV fluids. 3. Mild dehydration, improved with IV fluids. 4. History of asthma. 5. History of supraventricular tachycardia having a previous ablation therapy. 6. History of venous insufficiency with chronic lower edema. 7. History of pulmonary hypertension. 8. Iron deficiency anemia. 9. Hypertension. 10. History of chronic obstructive pulmonary disease with obstructive sleep apnea requiring CPAP at night. 11. Gastroesophageal reflux disease. PLAN: Will continue with current plan at this point with parenteral antibiotics to include vancomycin. I have stopped Levaquin. She will be transitioned to p.o. antiinflammatories with Roseanna today with anticipation of hopefully discharging tomorrow. Once discharged, she will have close clinical followup scheduled with Dr. Morales in the following week as well as further evaluation of the ankle with MRI prior to that followup appointment. She will need to discharge on an antiinflammatory and continued rest. Until discharge, will continue to monitor and treat appropriately. [facility][id number] [facility]
[2017-07-09] MEDS: MONTELUKAST 10 MG TAB PO SCH (21:30)
[2017-07-09] MEDS: MAGNESIUM OXIDE 400 MG TAB PO SCH (21:30)
[2017-07-09] MEDS: NON-FORMULARY MEDICATION 1 EA MIS (Dexlansoprazole [Dexilant] 60 MG) PO SCH (21:30)
[2017-07-09] MEDS: VANCOMYCIN HCL INJ 1,000 MG in SODIUM CHLORIDE 0.9% 250ML 250 ML IVPB SCH (21:30)
[2017-07-09] MEDS: PRAMIPEXOLE 0.25 MG TAB PO SCH (21:30)
[2017-07-09] MEDS: LURASIDONE HCL 60 MG PO SCH (21:30)
[2017-07-10] MEDS: traMADol HCL 50 MG TAB PO PRN ×2 (01:18→07:00)
[2017-07-10] MEDS: diphenhydrAMINE HCL 25 MG CAP PO PRN (01:19)
[2017-07-10] MEDS: PANTOPRAZOLE SODIUM TAB 40 MG PO SCH (06:26)
[2017-07-10] MEDS ORDERED: SODIUM CHLORIDE 0.9% 250ML 250 ML ONE ×2 (07:37→09:21)
[2017-07-10] MEDS ORDERED: VANCOMYCIN HCL INJ 1,000 MG VIAL IVPB ONE (07:38)
[2017-07-10] MEDS: PANCRELIPASE PO SCH (07:48)
[2017-07-10] MEDS: [UNRECOGNIZED DRUG - OTHER] PO SCH (07:48)
[2017-07-10] MEDS: POTASSIUM CHLORIDE 10 MEQ TAB PO SCH (07:48)
[2017-07-10] MEDS: TORSEMIDE TAB 20 MG PO SCH (08:40)
[2017-07-10] MEDS: SERTRALINE HCL 50 MG TAB PO SCH (08:44)
[2017-07-10] MEDS: lamoTRIgine 100 MG TAB PO SCH (08:45)
[2017-07-10] MEDS: SODIUM CHLORIDE 0.9% (FLUSH) 10 ML SYG IV SCH (08:45)
[2017-07-10] MEDS: MELOXICAM 7.5 MG TAB PO SCH ×2 (08:45→09:04)
[2017-07-10] MEDS: VANCOMYCIN HCL INJ 1,000 MG in SODIUM CHLORIDE 0.9% 250ML 250 ML IVPB SCH ×2 (08:46→09:28)
[2017-07-10] MEDS: ENOXAPARIN SODIUM 40 MG/0.4 ML SYG SUBCU SCH (08:46)
[2017-07-10] MEDS: NON-FORMULARY MEDICATION 1 EA MIS (Fluticasone Furoate-Vilanterol [Breo Ellipta 100-25 Mcg IN SCH (08:48)
[2017-07-10] MEDS: NON-FORMULARY MEDICATION 1 EA MIS (Tiotropium Bromide Monohydrate [Spiriva Respimat] 2 INH IN SCH (08:48)
[2017-07-10] MEDS: KETOROLAC TROMETHAMINE INJ 30 MG/ML VIAL IV ONE ×2 (09:05→09:48)
[2017-07-10] MEDS ORDERED: KETOROLAC TROMETHAMINE INJ 30 MG/ML VIAL IM ONE (09:42)
[2017-07-10] MEDS ORDERED: DOXYCYCLINE HYCLATE CAP 100 MG CAP PO SCH (10:00)
[2017-07-10 10:52] VITALS: BP 104/70; TEMP 97.9; O2SAT 97
[2017-07-10] MEDS ORDERED: SODIUM CHLORIDE 0.9% 250ML 250 ML IVS PRN ×2 (11:03→11:08)
--- NOTE | 2017-07-15 18:34 | DS ---
SUPERVISING PHYSICIAN: Sim Bah M.D. DISCHARGE DIAGNOSIS: 1. 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 2. Electrolyte imbalance with persistent mild hypokalemia improved with IV fluids. 3. Mild dehydration, improved with IV fluids. 4. Multiple co-morbidities to include asthma, supraventricular tachycardia with previous ablation, venous insufficiency with chronic lower edema, pulmonary hypertension, iron deficiency anemia, hypertension, obstructive sleep apnea requiring CPAP and gastroesophageal reflux disease. HISTORY OF PRESENT ILLNESS: Ms. Sawant is a 57 year-old female patient of Dr. Bah's that was seen in clinic on the Sunday prior to admission when she had some redness in her right lower leg. She was then diagnosed with cellulitis and placed on Clindamycin p.o. at that time. The night before admission she woke up early in the morning with pain in the right lower leg and the redness and swelling was much worse. She went to [facility] on the date of admission and saw NOAH Allen, and then had an ultrasound of her right lower extremity. Per radiology interpretation of the ultrasound there was no deep thrombosis of the right lower extremity. Marlene then called for direct admission. The patient was admitted directly from the clinic in stable condition. LABORATORY: White count on admission was 7,200, at discharge was 5,500. Differential was within normal limits. H&H was stable at 11 and 32. She had a sed rate initially on admission was 63, prior to discharge was 81. Chemistries showed a persistent hypokalemia, although it had resolved and normalized prior to discharge. At discharge, electrolytes were within normal limits with hypokalemia of 3.6 compared to admission of 3.1. BUN was stable at 16, creatinine 0.99. Liver functions all showed to be within normal limits. She had a C reactive protein on admission that was 17.7, prior to discharge it had gone down to 4.2. She was on vancomycin per Pharmacy protocol and had 1 vancomycin trough that was 19.3. MICROBIOLOGY: Blood cultures remained negative at 5 days. None of the cultures were submitted for analysis. RADIOLOGY: She had an ankle x-ray the day after admission and per radiology interpretation there was diffuse soft tissue swelling within the distal leg and ankle, and probable chronic osteochondral lesion at the medial talar dome. Other reports prior to admission as noted in History of Present Illness was a right lower extremity ultrasound which was negative for DVT per radiology interpretation. HOSPITAL COURSE: Ms. Sawant was admitted on 07/07/17 as noted in History of Present Illness. She was put on bedrest except for bathroom privileges. Her leg was elevated. She was started on vancomycin per Pharmacy protocol and Levaquin. It was noted that she had a recent ingrown toenail on the same foot that was mildly erythematous. She did show good improvement but continued to have a significant amount of pain over the medial aspect of the malleolus on the right leg. After x-rays were completed, it was felt that her clinical course was more related to inflammatory response to OCD versus a true infection. She was stopped on the Levaquin and continued with vancomycin until discharge, and then started on an antiinflammatory regimen while in the hospital on Toradol and responded well. Prior to discharge, her ankle had decreased in swelling. It was still showing some mild erythema over the malleolus, but was much improved as prior to admission. She was then transitioned to p.o. NSAIDs and felt clinically stable enough to be discharged to continue with outpatient treatment plan. PLAN: Ms. Sawant was discharged on 07/10/17 to have close clinical followup with Dr. Morales on 07/19/17 at 8:00 AM, earlier if condition continued to show lack of improvement. She was also told to see Dr. Bah if she needed to prior to that followup appointment. She was to resume her home medications as instructed. She was to take her new prescriptions as directed. She was told to have no weightbearing on the right ankle until she was seen by Dr. Morales and to keep her right leg elevated as much as possible. She was to return to the hospital should she have any worsening or continuing symptoms. She was not started on any steroids but was continued with antibiotic therapy and NSAIDs. MEDICATIONS AT DISCHARGE: 1. Zorvolex 35 mg 3 times a day, #21. 2. Antibiotic coverage to include Vibramycin 100 mg twice daily, #28. Diet at discharge was regular diet as tolerated. Activity is as instructed above. Condition at discharge was stable and improved. #[id number] [facility]
== END 2017-07-10 11:30 | disposition home or self-care (01) | DRG 603 ==
LOC: MS 13:08
PROVIDERS: ADMIT Nurse Practitioner Acute Care; ATTEND Nurse Practitioner Family
DX: L03.115 Cellulitis of right lower limb (principal); M93.271 Osteochondritis dissecans, right ankle and joints of right foot; J45.909 Unspecified asthma, uncomplicated; I27.20 Pulmonary hypertension, unspecified; D50.9 Iron deficiency anemia, unspecified; L60.0 Ingrowing nail; E53.8 Deficiency of other specified B group vitamins; I10 Essential (primary) hypertension; I08.3 Combined rheumatic disorders of mitral, aortic and tricuspid valves; G47.33 Obstructive sleep apnea (adult) (pediatric); K21.9 Gastro-esophageal reflux disease without esophagitis; K44.9 Diaphragmatic hernia without obstruction or gangrene; G25.81 Restless legs syndrome; F31.9 Bipolar disorder, unspecified; K86.89 Other specified diseases of pancreas; D70.9 Neutropenia, unspecified; E04.9 Nontoxic goiter, unspecified; E87.6 Hypokalemia; E86.0 Dehydration; M93.971 Osteochondropathy, unspecified, right ankle and foot; I87.2 Venous insufficiency (chronic) (peripheral); J44.9 Chronic obstructive pulmonary disease, unspecified; Z98.84 Bariatric surgery status

== ENCOUNTER → 2017-07-12 | Outpatient (CLI) | payer OTHER | END | disposition home or self-care (01) | LOC: GMAM 15:40 | PROVIDERS: ATTEND Family Medicine | DX: L03.115 Cellulitis of right lower limb (principal) ==

== ENCOUNTER → 2017-07-16 | Outpatient (CLI) | payer OTHER ==
--- NOTE | 2017-07-17 10:59 | MRI ---
Study: MRI of the Right Ankle. Indication: OCD OF RT ANKLE Technique: Multiplanar, multi sequence MRI of the right ankle was obtained without intravenous contrast. Comparison: Radiographs July 08, 2017. Findings: Extensive subcutaneous edema throughout the right lower leg and ankle without drainable collection. No acute fracture. A chronic appearing 14 mm AP by 8 mm transverse osteochondral lesion of the medial margin of the talar dome with overlying grade 3/4 chondrosis. There is minimal fluid signal intensity undermining portions of it which can indicate a degree of instability. Areas of grade 2 and 3 chondral thinning throughout the remainder of the tibiotalar compartment. Mild subcortical cystic change noted of the posterior medial margin of the lateral malleolus at its articulation with the talus. Scattered osteoarthritis changes throughout the midfoot noted and most pronounced at the articulation of the navicular bone with the medial and intermediate cuneiforms where there is multifocal grade 4 chondral loss and subchondral marrow change of the navicular bone. Prior high-grade partial thickness tearing and attenuation anterior talofibular ligament as well as prior sprains calcaneofibular ligament and deep deltoid ligament. Remaining medial and lateral ankle ligaments intact. The medial, anterior, peroneal, and Achilles tendons are intact. Moderate plantar calcaneal heel spurring with chronic appearing plantar fasciitis. No tear. Diminished T1 signal throughout the sinus tarsi with slightly elevated STIR signal which can be seen with sinus tarsi syndrome. Impression: Chronic appearing osteochondral lesion of the medial margin of the talar dome with several areas of likely instability. Scattered osteoarthritic changes of the midfoot, most pronounced at the articulation of the navicular bone with the medial and intermediate cuneiforms. Chronic plantar fasciitis. Remote partial thickness tear anterior talofibular ligament with remote sprain deep deltoid ligament. Electronically signed by: Howard Leal MD 07/17/2017 10:57 AM [facility]
== END | disposition home or self-care (01) ==
LOC: MRI 09:12
PROVIDERS: ATTEND Nurse Practitioner Family
DX: M72.2 Plantar fascial fibromatosis (principal); M19.071 Primary osteoarthritis, right ankle and foot

== ENCOUNTER → 2017-09-10 | Outpatient (CLI) | payer OTHER ==
--- NOTE | 2017-09-11 11:22 | MRI ---
Study: MRI of the Right Ankle. Indication: ANKLE PAIN Technique: Multiplanar, multi sequence MRI of the right ankle was obtained without intravenous contrast. Comparison: July 16, 2017 Findings: Extensive subcutaneous edema throughout the ankle, minimally improved compared to the prior. Patchy marrow edema noted within the superior margin posterior calcaneal tuberosity, central to distal calcaneus, central cuboid, and talar head/neck. These changes are likely stress-related and are new compared to the prior. No acute fracture identified. The osteochondral lesion of the medial margin of the talar dome with signs of partial instability redemonstrated and appears stable. No new osteochondral lesion identified. The osteoarthritic changes throughout the midfoot are stable as well and most pronounced at the articulation of the navicular bone with the medial and intermediate cuneiforms. Chronic plantar fasciitis redemonstrated and appear stable without acute tear. Remote partial tear anterior talofibular ligament and remote sprain deep deltoid ligament redemonstrated. No acute fluid filled tear of the medial or lateral ankle ligaments. Mild fluid distention of the posterior tibialis tendon sheath with subtle insertional posterior tibialis tendinosis. No tear. Remaining medial tendons, anterior tendons, and Achilles tendon intact. Subtle tendinosis of the peroneal tendons along the lateral margin of the calcaneus with mild longitudinal fissuring of the brevis tendon. No high-grade tear. Impression: New marrow edema of the hindfoot and midfoot as above, likely stress-related. No acute fracture. Extensive subcutaneous edema about the ankle. Chronic appearing osteochondral lesion of the talar dome redemonstrated with signs of instability. Stable osteoarthritic changes throughout the midfoot. Low-grade insertional posterior tibialis tendinosis. Subtle tendinosis of the peroneal tendons with mild longitudinal fissuring of the brevis tendon. Additional stable findings as above. Electronically signed by: Howard Leal MD 09/11/2017 11:21 AM [facility]
== END ==
LOC: MRI 13:18
PROVIDERS: ATTEND Orthopaedic Surgery
DX: M25.571 Pain in right ankle and joints of right foot (principal); M92.8 Other specified juvenile osteochondrosis; M76.821 Posterior tibial tendinitis, right leg

== ENCOUNTER → 2017-09-14 | Outpatient (CLI) | payer OTHER ==
--- NOTE | 2017-09-15 13:19 | RAD ---
Two views of the pelvis and two views of both hips. INDICATION: Hip pain. COMPARISON: None. FINDINGS: Pelvic ring inlet appears maintained. No widening pubic symphysis or sacroiliac joints. No displaced or diastatic pelvic fractures identified. There are moderate hypertrophic degenerative changes of both hip joints with joint space narrowing and osteophytosis, right greater than left. No acute fracture, dislocation or suspicious osseous lesions identified in the visualized proximal femora. Soft tissues have a normal radiographic appearance. IMPRESSION: 1. Moderate osteoarthritic degenerative changes of both hip joints, right greater than left. 2. No radiographic evidence for acute osseous abnormality of the pelvis or either hip. Electronically signed by: Bart Villalba MD 09/15/2017 1:18 PM [facility] Workstation: [id number]
== END | disposition home or self-care (01) ==
LOC: RAD 10:29
PROVIDERS: ATTEND Orthopaedic Surgery
DX: M16.0 Bilateral primary osteoarthritis of hip (principal)

== ENCOUNTER → 2017-09-17 | Outpatient (CLI) | payer OTHER | END | disposition home or self-care (01) | LOC: LAB.O 17:42 | PROVIDERS: ATTEND Physician Assistant | DX: M79.661 Pain in right lower leg (principal) ==

== ENCOUNTER → 2017-09-18 | Outpatient (CLI) | payer OTHER ==
--- NOTE | 2017-09-18 13:36 | US ---
EXAM DESCRIPTION: Venous,Lower Extremity RT: ULTRASOUND. CLINICAL HISTORY: PAIN IN LOWER LEG COMPARISON: None Available. TECHNIQUE: Two -dimensional and doppler sonographic evaluation of the deep venous system of the right lower extremity. FINDINGS: Doppler evaluation shows normal color flow and normal phasicity and augmentation of the right common femoral vein, femoral vein, popliteal vein, greater saphenous vein, peroneal, and posterior tibial vein. The right lower extremity deep veins showed normal occlusion with transducer pressure. Two-dimensional survey showed no echogenic thrombus within these veins. 2.0 x 1.5 x 0.6 cm oval-shaped mass in the distal anterior subcutaneous tissue of the right lower leg. More homogeneous than the surrounding fatty tissue but isoechoic. Nonvascular. No fluid collection. IMPRESSION: 1. Duplex ultrasound evaluation of the right lower extremity deep venous system showing no evidence of thrombosis or embolism. 2. Probable lipoma subcutaneous adipose tissue, anterior distal right lower leg. Electronically signed by: Hitesh Salcido MD 09/18/2017 1:35 PM STUDENT OUTREACH COORDINATOR
== END | disposition home or self-care (01) ==
LOC: US 12:21
PROVIDERS: ATTEND Physician Assistant
DX: M79.661 Pain in right lower leg (principal)

== ENCOUNTER → 2017-09-21 | Outpatient (CLI) | payer OTHER | END | disposition home or self-care (01) | LOC: LAB.O 15:10 | PROVIDERS: ATTEND Physician Assistant | DX: E87.6 Hypokalemia (principal) ==

== ENCOUNTER → 2017-10-02 | Outpatient (CLI) | payer OTHER | LOC: LAB.O 13:13 | PROVIDERS: ATTEND Internal Medicine Cardiovascular Disease | DX: R60.9 Edema, unspecified (principal); I10 Essential (primary) hypertension ==

== ENCOUNTER → 2017-10-05 | Outpatient (CLI) | payer OTHER | LOC: GMAM 13:18 | PROVIDERS: ATTEND Family Medicine | DX: E87.6 Hypokalemia (principal) ==

== ENCOUNTER → 2017-10-29 | Outpatient (CLI) | payer OTHER | LOC: LAB.O 15:36 | PROVIDERS: ATTEND Internal Medicine Hematology | DX: D50.8 Other iron deficiency anemias (principal) ==

== ENCOUNTER → 2017-12-06 | Outpatient (CLI) | payer OTHER | END | disposition home or self-care (01) | LOC: LAB.O 17:32 | DX: N18.3 Chronic kidney disease, stage 3 (moderate) (principal); I12.9 Hypertensive chronic kidney disease with stage 1 through stage 4 chronic kidney disease, or unspecified chronic kidney disease ==

== ENCOUNTER → 2018-03-13 | Outpatient (CLI) | payer OTHER ==
--- NOTE | 2018-03-13 13:26 | RAD ---
EXAM DESCRIPTION: Chest,2 Views CLINICAL HISTORY: 58 years Female, OTHER SECONDARY PULMONARY HYPERTENSION COMPARISON: September 27, 2016. TECHNIQUE: PA and lateral radiographs of the chest were obtained. FINDINGS: Trachea is midline.The cardiomediastinal silhouette is normal in size. The pulmonary vasculature is within normal limits.The lungs are clear with no acute consolidation.No evidence of pleural effusions. Multilevel degenerative changes of the thoracic spine noted. IMPRESSION: No acute cardiopulmonary process. Electronically signed by: Manjinder Grijalva MD 03/13/2018 1:25 PM CDT
--- NOTE | 2018-03-13 16:25 | MRI ---
EXAM DESCRIPTION: Ankle,Right CLINICAL HISTORY: M24.071 COMPARISON: September 2017 TECHNIQUE: MRI of the right ankle is performed according to our usual protocol with multiplanar multi sequence imaging. FINDINGS: Today's examination is directly correlated with the September 2017 study and again shows diffuse edema throughout the superficial and deep subcutaneous tissues. Large osteochondral defect in the medial talar dome again demonstrated measuring 18 mm in AP diameter by 12 mm transverse diameter. This is a full-thickness defect with no unstable or loose body observed. No new talar abnormality detected. Evaluation of posterior tendons shows split thickness tear of the peroneus longus as it turns underneath the calcaneus. Mild tendinopathy of the peroneus brevis. Posterior tibial tendon unremarkable along with other not mentioned posterior tendons. Achilles unremarkable. Anterior compartment tendons intact. Mild plantar fasciitis. Medial ligament complex of the ankle shows an indistinct appearance of the deep fibers of the deltoid consistent with remote prior injury/instability. Evaluation of lateral ligament complex shows mild thickening and increased signal intensity anterior and posterior talofibular ligaments and calcaneofibular ligament also consistent with chronic/prior ankle sprain. There is edema throughout the sinus Tarsi with an indistinct appearance of the cervical ligaments. 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 Complex abnormal right ankle is stable since previous examinations with large stable osteochondral defect and findings of chronic instability and likely related edema in the sinus Tarsi. Electronically signed by: Henry Ramon MD 03/13/2018 4:24 PM CDT
== END ==
LOC: MRI 12:00
PROVIDERS: ATTEND Orthopaedic Surgery
DX: M24.071 Loose body in right ankle (principal); M93.271 Osteochondritis dissecans, right ankle and joints of right foot; I27.20 Pulmonary hypertension, unspecified

== ENCOUNTER 2018-05-21 12:55 | Emergency (ER) | payer OTHER ==
--- NOTE | 2018-05-21 13:37 | ED.PDOC ---
History of Present Illness - General Chief Complaint: Laceration Time Seen by Provider: 05/21/18 13:35 Source: patient Exam Limitations: no limitations - History of Present Illness Initial Comments: ppatient comes in today for laceration to her lip. Patient states she tripped on her walking cast fell and hit her face causing a laceration. She has no dental injury no loss of consciousness with some dizziness. No altered LOC, vision, or emesis. Patient has multiple medical problems including digestive heart failure, pulmonary hypertension, multi-nodular goiter, and valvular disease. Last tetanus shot was 5 years ago. Timing/Duration: just prior to arrival Severity: moderate Location: face Improving Factors: nothing Worsening Factors: nothing Associated Symptoms: denies symptoms Allergies/Adverse Reactions: Allergies NO KNOWN ALLERGY Allergy (Verified 05/21/18 14:30) Home Medications: Ambulatory Orders Dexlansoprazole [Dexilant] 60 mg PO BEDTIME 04/07/16 Montelukast [Singulair] 10 mg PO BEDTIME 04/07/16 Ondansetron HCl [Zofran] 8 mg PO Q6H PRN 04/07/16 Sertraline HCl [Zoloft] 150 mg PO DAILY 04/07/16 Lurasidone HCl [Latuda] 60 mg PO BEDTIME 07/19/16 Levalbuterol Nebs [Xopenex NEBS] 1.25 mg NEB Q4H PRN 09/26/16 Levalbuterol Tartrate [Xopenex Hfa] 45 mcg IN Q6H PRN 09/26/16 Meclizine HCl [Meclizine 25] 25 mg PO Q6H PRN 09/26/16 Pancrelipase (Lipase-Protease- [Zenpep [id number] Unit] 1 cap PO TID PRN 09/26 Pancrelipase (Lipase-Protease- [Zenpep [id number] Unit] 2 cap PO TIDFD Potassium Chloride [Potassium Chloride ER] 20 meq PO DAILYBK 09/26/16 Tiotropium [place] Monohydrate [Spiriva Respimat] 2 inh IN RTDAILY 09/26/16 Triamcinolone 0.1% Oint [Kenalog 0.1% Ointment] 1 applic TOP DAILY PRN 09/26/16 Levalbuterol Nebs [Xopenex NEBS] 1.25 mg NEB Q4HR PRN #60 vial 09/30/16 Fluticasone Furoate-Vilanterol [Breo Ellipta 100-25 Mcg/INH] 1 inh IN RTDAILY Lamotrigine [Lamictal] 50 mg PO DAILY 07/07/17 Magnesium 400 mg PO BEDTIME 07/07/17 Potassium Chloride [Potassium Chloride ER] 10 meq PO DAILY@1700 07/07/17 Pramipexole Dihydrochloride [Pramipexole Dihydrochlori] 1 mg PO BEDTIME Torsemide 80 mg PO BID 07/07/17 Tramadol HCl 50 mg PO Q6H PRN 07/07/17 Diclofenac [Zorvolex] 35 mg PO TID #21 cap 07/10/17 Doxycycline Hyclate [Vibramycin] 100 mg PO BID #28 cap 07/10/17 Review of Systems - Review of Systems Constitutional: States: no symptoms reported. Denies: chills, fever EENTM: States: mouth pain. Denies: eye pain, ear pain, nose pain, throat swelling Respiratory: States: no symptoms reported Cardiology: States: no symptoms reported Gastrointestinal/Abdominal: States: no symptoms reported Genitourinary: States: no symptoms reported Musculoskeletal: States: no symptoms reported Skin: States: see HPI Past Medical History (General) - Patient Medical History Hx Seizures: Yes - 1 in the 1970s after subdural hematoma Hx Stroke: No Hx Asthma: Yes Hx of COPD: Yes Hx Cardiac Disorders: Yes - SVT ablation Hx Congestive Heart Failure: Yes - pulm edema and x4 leaky valves Hx Pacemaker: No Hx Hypertension: Yes Hx Diabetes: No Hx Gastroesophageal Reflux: Yes - hiatal hernia Hx MRSA: No - Vaccination History Hx Influenza Vaccination: Yes Hx Pneumococcal Vaccination: Yes - Social History Hx Tobacco Use: No Hx Alcohol Use: No Hx Substance Use: No Hx Physical Abuse: No Hx Emotional Abuse: No Family Medical History - Family History Mother Family History: Unknown Physical Exam - Physical Exam General Appearance: Alert, Comfortable Eyes, Ears, Nose, Throat Exam: other - 1 cm laceration to the lip through to the mucosa and involving the nusrat border Neck: non-tender, full range of motion, normal inspection Cardiovascular/Chest: normal peripheral pulses, regular rate, rhythm, no edema, no murmur Respiratory: chest non-tender, lungs clear, normal breath sounds Gastrointestinal/Abdominal: normal bowel sounds, non tender, soft Neurologic: bread wrapper II-XII nml as tested, alert, oriented x 3 Progress - Progress Progress: 05/21/18 14:31 discussed at length with patient her options including repairing the laceration here and having close follow up with plastic surgery. Patient is adamant that as nusrat border is involved she would like plastic surgery to repair. She requested her prior surgeon Dr. Luis Block but on calling his office he no longer takes private patients as he is doing children's service at [place] He suggested Dr. Pyle who that patient also knows and she agrees. On calling his office he is button clamper and at the hospital for coverage and his nurse suggests ER with consult to have it repaired. Called for transfer and transfer service would like us to make sure patient understands that it is up to the ER doctor if they need to consult. She still would like to go and see if it can be repaired by Dr. Pyle. We will transfer. Departure - Departure Clinical Impression: Laceration Disposition: Transfer to Hospital Condition: Good Departure Forms: ED Discharge - Pt. Copy, Patient Portal Self Enrollment Instructions: DI for Laceration Repair Referrals: Sim Bah MD [Primary Care Provider] - 1-2 Weeks Home Medications: Ambulatory Orders Dexlansoprazole [Dexilant] 60 mg PO BEDTIME 04/07/16 Montelukast [Singulair] 10 mg PO BEDTIME 04/07/16 Ondansetron HCl [Zofran] 8 mg PO Q6H PRN 04/07/16 Sertraline HCl [Zoloft] 150 mg PO DAILY 04/07/16 Lurasidone HCl [Latuda] 60 mg PO BEDTIME 07/19/16 Levalbuterol Nebs [Xopenex NEBS] 1.25 mg NEB Q4H PRN 09/26/16 Levalbuterol Tartrate [Xopenex Hfa] 45 mcg IN Q6H PRN 09/26/16 Meclizine HCl [Meclizine 25] 25 mg PO Q6H PRN 09/26/16 Pancrelipase (Lipase-Protease- [Zenpep [id number] Unit] 1 cap PO TID PRN 09/26 Pancrelipase (Lipase-Protease- [Zenpep [id number] Unit] 2 cap PO TIDFD Potassium Chloride [Potassium Chloride ER] 20 meq PO DAILYBK 09/26/16 Tiotropium [place] Monohydrate [Spiriva Respimat] 2 inh IN RTDAILY 09/26/16 Triamcinolone 0.1% Oint [Kenalog 0.1% Ointment] 1 applic TOP DAILY PRN 09/26/16 Levalbuterol Nebs [Xopenex NEBS] 1.25 mg NEB Q4HR PRN #60 vial 09/30/16 Fluticasone Furoate-Vilanterol [Breo Ellipta 100-25 Mcg/INH] 1 inh IN RTDAILY Lamotrigine [Lamictal] 50 mg PO DAILY 07/07/17 Magnesium 400 mg PO BEDTIME 07/07/17 Potassium Chloride [Potassium Chloride ER] 10 meq PO DAILY@1700 07/07/17 Pramipexole Dihydrochloride [Pramipexole Dihydrochlori] 1 mg PO BEDTIME Torsemide 80 mg PO BID 07/07/17 Tramadol HCl 50 mg PO Q6H PRN 07/07/17 Diclofenac [Zorvolex] 35 mg PO TID #21 cap 07/10/17 Doxycycline Hyclate [Vibramycin] 100 mg PO BID #28 cap 07/10/17 Transfer to Outside Facility - Transfer Information Accepting Facility: [facility] Reason for Transfer: required specialist not available
[2018-05-21 14:30] VITALS: TEMP 97.8; O2SAT 99
[2018-05-21 14:51] VITALS: BP 138/59
== END 2018-05-21 14:55 | disposition short-term general hospital (02) ==
LOC: ER 12:55
DX: S01.511A Laceration without foreign body of lip, initial encounter (principal); I50.9 Heart failure, unspecified; J44.9 Chronic obstructive pulmonary disease, unspecified; Z79.899 Other long term (current) drug therapy; W01.198A Fall on same level from slipping, tripping and stumbling with subsequent striking against other object, initial encounter; Y92.9 Unspecified place or not applicable

== ENCOUNTER → 2019-03-03 | Outpatient (CLI) | payer OTHER | LOC: GRHH 12:39 | PROVIDERS: ATTEND Physician Assistant | DX: D50.9 Iron deficiency anemia, unspecified (principal); E87.6 Hypokalemia ==

== ENCOUNTER → 2019-03-21 | Outpatient (CLI) | payer OTHER | LOC: LAB.O 12:36 | PROVIDERS: ATTEND Internal Medicine | DX: E21.3 Hyperparathyroidism, unspecified (principal) ==

== ENCOUNTER → 2019-06-19 | Outpatient (CLI) | payer BC ==
--- NOTE | 2019-06-20 11:58 | US ---
EXAM DESCRIPTION: Venous,Lower Extremity LT: ULTRASOUND. CLINICAL HISTORY: PAIN IN LEFT LOWER LEG COMPARISON: Negative venous Doppler study right lower leg September 2017. TECHNIQUE: Contreras-scale and doppler sonographic evaluation of the deep venous system of the left lower extremity. FINDINGS: Doppler evaluation shows normal color flow and normal phasicity and augmentation of the left common femoral vein, femoral vein, popliteal vein, greater saphenous vein, junction with the CFV. Also normal color flow and normal phasicity and augmentation of the peroneal, and posterior tibial vein. The left lower extremity deep veins were completely compressible; normal occlusion with transducer pressure. Contreras-scale survey showed no echogenic thrombus within these veins. IMPRESSION: 1. Duplex ultrasound evaluation of the left lower extremity deep venous system showing no evidence of thrombosis. Electronically signed by: Hitesh Salcido MD 06/20/2019 11:56 AM CDT
== END ==
LOC: US 10:04
PROVIDERS: ATTEND Nurse Practitioner Family
DX: M79.662 Pain in left lower leg (principal)

== ENCOUNTER → 2019-07-09 | Outpatient (CLI) | payer BC | LOC: LAB.O 18:02 | PROVIDERS: ATTEND Family Medicine | DX: E87.6 Hypokalemia (principal) ==

== ENCOUNTER → 2019-12-23 | Outpatient (CLI) | payer MEDICARE ==
--- NOTE | 2019-12-24 08:25 | US ---
EXAM DESCRIPTION: Extremity,Lower RT Arteries: Ultrasound. CLINICAL HISTORY: CELLULITIS OF RIGHT LOWER LIMB COMPARISON: None. TECHNIQUE: Doppler evaluation of the bilateral lower extremity arterial flow waveforms and velocities. FINDINGS: Arterial waveforms in the right lower extremity are monophasic from the right common femoral artery through the right popliteal artery. Biphasic waveform in the right peroneal artery. Monophasic waveforms in the more distal arteries. Comments: Waveforms show minimal spectral broadening though monophasic. Good velocities. IMPRESSION: Most of the Doppler waveforms of the right lower extremity arterial system are monophasic. However velocities are good and the waveforms show little if any spectral broadening. The left lower extremity was not studied. Consider lower extremity CTA if these findings are not concordant with clinical findings. Electronically signed by: Hitesh Salcido MD 12/24/2019 8:23 AM CDT
== END ==
LOC: US 15:42
PROVIDERS: ATTEND Family Medicine
DX: L03.115 Cellulitis of right lower limb (principal); M93.2 Osteochondritis dissecans

== ENCOUNTER → 2019-12-25 | Outpatient (CLI) | payer MEDICARE | LOC: GMAM 16:26 | PROVIDERS: ATTEND Family Medicine | DX: L03.115 Cellulitis of right lower limb (principal) ==

== ENCOUNTER → 2020-01-01 | Outpatient (CLI) | payer MEDICARE | LOC: GMAM 11:46 | PROVIDERS: ATTEND Family Medicine | DX: L03.115 Cellulitis of right lower limb (principal); M93.2 Osteochondritis dissecans ==

== ENCOUNTER → 2020-06-04 | Outpatient (CLI) | payer MEDICARE | LOC: GMAM 12:43 | PROVIDERS: ATTEND Family Medicine | DX: L03.115 Cellulitis of right lower limb (principal) ==

== ENCOUNTER → 2020-06-10 | Outpatient (CLI) | payer MEDICARE ==
--- NOTE | 2020-06-10 18:53 | CT ---
EXAM DESCRIPTION: Abdoment/Pelvis w/o Contrast CLINICAL HISTORY: 60 years Female, ABD PAIN TECHNIQUE: This exam was performed according to our departmental dose-optimization program, which includes automated exposure control, adjustment of the mA and/or kV according to patient size and/or use of iterative reconstruction technique. COMPARISON: None at time of initial interpretation. FINDINGS: Evaluation limited by lack of intravenous contrast. Bibasilar volume loss. No focal consolidation or suspicious pulmonary nodule. The contours of the liver, gallbladder, spleen, pancreas and adrenal glands are unremarkable. Normal renal contours. No hydronephrosis. No urolithiasis. Unremarkable bladder. Presumed hysterectomy. No suspicious adnexal mass. Small fat-containing umbilical hernia. Scattered colonic diverticula without focal inflammatory change. No evidence of bowel obstruction. No findings to suggest appendicitis. Normal appendix. Gastric bypass. Prominent left periaortic lymph nodes. A reference node measures 1.2 cm series 2 image 95. A separate reference left iliac chain lymph node measures 1.3 cm series 2 image 110. No focal fluid collection. No free air. Normal caliber abdominal aorta. No acute or suspicious osseous abnormality. Scattered degenerative changes present. Bilateral L5 pars defects with associated anterolisthesis. IMPRESSION: 1. No evidence of acute process in the abdomen or pelvis. 2. Mildly prominent retroperitoneal and left pelvic lymph nodes of uncertain etiology. However a lymphoproliferative disorder such as lymphoma cannot be excluded by this examination. Electronically signed by: Pa Miller MD 06/10/2020 6:51 PM CDT
== END ==
LOC: CT 08:31
PROVIDERS: ATTEND Family Medicine
DX: R10.84 Generalized abdominal pain (principal); R59.9 Enlarged lymph nodes, unspecified

== ENCOUNTER → 2020-06-30 | Outpatient (CLI) | payer MEDICARE | LOC: GMAM 16:39 | PROVIDERS: ATTEND Family Medicine | DX: E87.0 Hyperosmolality and hypernatremia (principal) ==